=== PATIENT | male | born 1935 | race Hispanic/Latino ===

== ENCOUNTER 2017-11-26 10:05 | Day surgery (SDC) | payer MEDICARE ==
[2017-11-16 08:18] VITALS: BMI 25.4
[2017-11-26] MEDS ORDERED: Gentamicin 160 MG in Sodium Chloride 0.9% 100 ML IVPB ONE (11:49)
[2017-11-26] MEDS ORDERED: Lidocaine 2% Jelly (Uro-Jet) ONE (12:00)
[2017-11-26] MEDS ORDERED: Ciprofloxacin 400mg/200ml D5W 400 MG/200 ML BAG IVPB ONE (12:00)
[2017-11-26] MEDS ORDERED: Propofol 10 mg/ml Inj (20 ML) ONE (12:25)
--- NOTE | 2017-11-26 13:26 | PCM.SURG1 ---
Surgeon's Initial Post Op Note - Surgeon's Notes Surgeon: Pamella Jewelry Casting Model Maker Apprentice: CURT Type of Anesthesia: General LMA Anesthesia Administered By: Staff Pre-Operative Diagnosis: BPH luts Elevated psa Operative Findings: BPH TELLES Post-Operative Diagnosis: BPH TELLES elevated psa Operation Performed: US guided prostate BX Cystoscopy Specimen/Specimens Removed: US guided prostate bx Cysto Estimated Blood Loss: EBL {In ML}: 0 Blood Products Given: N/A Drains Used: No Drains Post-Op Condition: Good Date of Surgery/Procedure: 11/26/17 Time of Surgery/Procedure: 13:27
[2017-11-26] MEDS ORDERED: HYDROmorphone 0.5 mg/0.5 ml ISec IVP PRN (13:32)
[2017-11-26] MEDS ORDERED: Lactated Ringer's 1,000 ML IV SCH (14:00)
[2017-11-26 15:04] VITALS: BP 137/76; PULSE 73; RESP 18; TEMP 98; O2SAT 100
--- NOTE | 2017-11-27 00:34 | OP ---
PROCEDURE DATE: 11/26/2017 PREOPERATIVE DIAGNOSIS: Enlarged prostrate and elevated prostate-specific antigen. POSTOPERATIVE DIAGNOSIS: Enlarged prostrate and elevated prostate-specific antigen. PROCEDURE: Cystoscopy and transrectal prostate biopsy and cystopanendoscopy. 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 DESCRIPTION OF PROCEDURE: The patient was draped and prepped in the usual manner. A timeout was taken according to the rules and regulations of [facility]. The patient previously signed a full informed consent after reviewing risk and complications of this procedure. He accepted the risks. Once the timeout was taken, he was draped and prepped in the usual manner, and he received prophylactic antibiotics. He underwent transrectal prostatic ultrasonography and this was used to take a 12-core biopsy using ultrasound guidance. When this occurred, the probe was removed, there was no rectal bleeding. The patient was cystoscoped with #21 Storz panendoscope. The pendulous and membranous urethra were normal. The prostatic urethra showed trilobar hypertrophy with significant outlet obstruction. The bladder showed +3 trabeculation. Based on the above findings, the patient does have significant outlet obstruction. He may need to continue medications and/or consider GreenLight laser prostatectomy or further therapy if biopsy is positive. Ras Can MD
== END 2017-11-26 15:30 | disposition home or self-care (01) ==
LOC: C.SDS 10:05
PROVIDERS: ATTEND Urology
DX: R97.20 Elevated prostate specific antigen [PSA] (principal); N40.1 Benign prostatic hyperplasia with lower urinary tract symptoms; N13.8 Other obstructive and reflux uropathy; N32.89 Other specified disorders of bladder
CPT/HCPCS: 52000; 55700; 88305; J0744; J1580